=== PATIENT | male | born 1980 | race Caucasian/White ===

== ENCOUNTER → 2017-05-20 12:24 | Outpatient (CLI) | payer OTHER, SELFPAY ==
[2017-05-20 15:48] LABS: Absolute Neutrophil Count 4.5 X10^3/uL (2.0-7.7); Basophil# 0.02 X10^3/uL; Basophil% 0.3 % (0-1); Eosinophils% 1.5 % (0-5); Hematocrit 45.4 % (40-54); Hemoglobin 15.6 g/dl (13.0-16.5); Lymphocyte % 19.9 % (19-41); Mean Corp Hgb Conc 34.4 g/gl (32-36); Mean Corpuscular Hgb 28.2 pg (27.0-32.0); Mean Corpuscular Volume 82.1 fL (80-94); Mean Platelet Vol. 10.8 fl (6.2-12.0); Monocyte# 0.58 X10^3/uL; Monocyte% 8.9 % (0-10); Neutrophil # 4.51 X10^3/uL (2.7-7.7); Neutrophil % 69.2 % (47-70); Platelet Count 217 K/mm3 (150-450); RBC Distribution Width CV 13.2 % (11.6-14.6); RBC Distribution Width SD 39.3 fl (35.1-43.9); Red Blood Count 5.53 M/mm3 (4.6-6.2); White Blood Count 6.5 K/mm3 (4.4-11.0)
[2017-05-20 15:54] LABS: POSITIVE COUNT NO; POSITIVE DIFFERENTIAL NO; POSITIVE MORPHOLOGY NO
[2017-05-20 16:02] LABS: CRP < 2.90 mg/L (0.0-3.0)
== END ==
PROVIDERS: Family Provider Family Medicine; PCP Family Medicine; Visit Provider Family Medicine
DX: R51 Headache (principal); R53.83 Other fatigue; R42 Dizziness and giddiness
CPT/HCPCS: 36415; 85025; 86140

== ENCOUNTER 2018-05-01 03:35 | Emergency (ER) | payer OTHER, SELFPAY ==
[2018-05-01 03:37] VITALS: BP 132/72; PULSE 100; RESP 18; TEMP 36.7; O2SAT 99; BMI 26.4
[2018-05-01] MEDS: 0.9% Normal Saline 1,000 ML 1000 ML IV (03:58)
[2018-05-01] MEDS: Ondansetron 4 MG/2 ML Vial IV (03:58)
[2018-05-01 04:16] LABS: Anion Gap 7 (5-15); BUN 14 mg/dL (7-18); BUN/Creat Ratio 12.2 RATIO (10-20); Calcium,Total 8.9 mg/dL (8.5-10.1); Chloride 107 mmol/L (98-107); Creatinine, Serum 1.15 mg/dL (0.70-1.30); EST Glomerular Filtration Rate 76 mL/min (>60); Est Glom Filt Rate - Afr Amer 92 mL/min (>60); Estimated Creatinine Clearance 100.36 ml/min; Glucose 111 mg/dL (74-106); Potassium 4.1 mmol/L (3.5-5.1); Sodium Level 142 mmol/L (136-145)
[2018-05-01] MEDS: Ketorolac 30 MG/ML Syringe IV (04:25)
--- NOTE | 2018-05-01 05:21 | ED.VISSUMM ---
- ER Visit Summary Date of Service: 05/01/18 Chief Complaint: Nausea, vomiting and diarrhea with abdominal cramping. History of Present Illness: The patient is a 37 M past medical history of reflux. Patient states around 1130 night he started having nausea, vomiting and diarrhea with associated diffuse abdominal cramping. No dysuria. He has had prior GI workups that were negative. He denies any fever. No abdominal trauma. Physical Examination: Well-appearing young male. Vital signs are stable. He is afebrile. He does not look septic or toxic. H EENT exam unremarkable. Neck nontender no lymphadenopathy. Lungs clear to auscultation bilaterally. Heart regular rate and rhythm no murmur. Abdomen soft. Nondistended. Normal bowel sounds no peritoneal signs. He did describes pain but there is no reproducible tenderness. His right upper right lower quadrants are unremarkable. No hernias or masses. Patient moving all 4 extremities. Neurovascular intact. Back nontender. Skin normal. Neurologic exam normal. Test Results: Chemistries normal with a normal BUN, creatinine and gap. Emergency Department Course and Treatment: Repeat exam patient is doing much better after being treated with a liter of normal saline. IV Zofran and Toradol. Repeat exam of his abdomen though 520 his abdomen is benign. He feels much better is comfortable being discharged home. Treatment Plan: Clinically treated as a viral gastroenteritis. Plenty of fluids and rest. Zofran as needed for nausea. Return if feeling worse or follow-up with not improving. Increase diet slowly. Disposition: Discharge Impression: Acute nausea, vomiting and diarrhea secondary to viral gastroenteritis This note was generated with [employer] dictation software. It may contain incorrect words, spelling, and punctuation that were not noted in review of the chart prior to signing ED Disposition - Plan for ED Patient: Referrals: Robb Young DO [Primary Care Provider] -
--- NOTE | 2018-05-01 05:26 | ED.DEP ---
ED Disposition - Plan for ED Patient: Disposition: Home or Assisted Living Instructions: ED Gastroenteritis Viral Referrals: Robb Young DO [Primary Care Provider] - 3-5 Days if not improving Additional Instructions: Plenty of fluids and rest and increase diet as tolerated. Zofran as needed for nausea. Follow-up with your doctor as needed or return if feeling worse.
[2018-05-01] MEDS: Ondansetron ODT 4 MG Tablet PO (05:34)
[2018-05-01 05:36] VITALS: BP 139/85; PULSE 89; RESP 18; O2SAT 100
== END 2018-05-01 05:36 | disposition home or self-care (01) ==
PROVIDERS: Emergency Provider Emergency Medicine; Family Provider Family Medicine; PCP Family Medicine
DX: A08.4 Viral intestinal infection, unspecified (principal); K21.9 Gastro-esophageal reflux disease without esophagitis
CPT/HCPCS: 80048; 96361; 96374; 96375; 99285; J7030; A4216; J2405

== ENCOUNTER → 2019-04-24 12:10 | Outpatient (CLI) | payer OTHER, SELFPAY ==
--- NOTE | 2019-04-24 12:15 | RAD_ITS ---
STUDY: X-RAY - LEFT HUMERUS REASON FOR EXAM: Male, 38 years old. left proximal arm pain, occasionally with tingling of the left arm, etiology unclear TECHNIQUE: 3 view(s) of the humerus. COMPARISON: None. FINDINGS: Normal visualized humerus. There is no demonstrated fracture or osseous destructive process. There is no demonstrated soft tissue abnormality. RAD/Humerus min 2 Views IMPRESSION: Normal x-ray examination of the humerus. Electronically Signed: Kayla Blanc MD at 0:48 EDT , Service support ,
== END ==
PROVIDERS: PCP Family Medicine; Referring Provider Family Medicine; Visit Provider Family Medicine
DX: M79.602 Pain in left arm (principal)
CPT/HCPCS: 73060

== ENCOUNTER → 2019-05-08 12:46 | Outpatient (CLI) | payer OTHER, SELFPAY ==
--- NOTE | 2019-05-08 12:56 | MRI_ITS ---
STUDY: MRI LEFT SHOULDER REASON FOR EXAM: Male, 38 years old. LEFT SHOULDER WEAKNESS, nki TECHNIQUE: Standardized fat and water weighted pulse sequences were obtained in all 3 orthogonal planes. COMPARISON: X-ray of the left humerus dated April 24, 2019 FINDINGS: Normal supraspinatus tendon. Normal infraspinatus tendon. Normal subscapularis tendon. Normal teres minor tendon. Normal supraspinatus muscle. Normal infraspinatus muscle. Normal subscapularis muscle. Normal teres minor muscle. Normal glenohumeral articulation. Normal humeral head and visualized proximal humerus. Normal biceps labral complex. Normal intracapsular long biceps tendon. Normal labrum. No demonstrated labral tear or detachment. No para labral cyst. Normal capsulo- ligamentous complex. Normal rotator interval. No marrow edema is seen. No joint effusion. Normal acromioclavicular articulation. There is a Type II morphology (curved), with a neutral orientation. There is no subacromial-subdeltoid bursal fluid. Normal visualized coracohumeral and coracoacromial ligaments. Normal quadrilateral space. Normal axillary space. Normal deltoid muscle. Normal trapezius muscle. MRI/Upper Ext Joint Only(Routine) IMPRESSION: Negative MRI of the shoulder. Electronically Signed: Alejandro Arvizu MD at 14:50 EDT , Service support ,
== END ==
PROVIDERS: PCP Family Medicine; Referring Provider Family Medicine; Visit Provider Family Medicine
DX: M25.512 Pain in left shoulder (principal); M79.602 Pain in left arm
CPT/HCPCS: 73221

== ENCOUNTER 2019-12-25 11:38 | Emergency (ER) | payer OTHER, SELFPAY ==
[2019-12-25 11:39] VITALS: BP 138/89; PULSE 93; RESP 18; TEMP 36.2; O2SAT 98; BMI 26.4
--- NOTE | 2019-12-25 11:55 | ED.VIS.UPPEX ---
History of Present Illness Chief Complaint: Laceration Informant: Patient Occurred: Today - ISATU Mechanism/Context: Injury - Tree stand broke, as he was falling out he attempted to grab something to break his fall and accidentally grabbed a screw, causing a laceration to his right hand Context: Sudden Onset Timing: Continuous Quality of Pain: - - sore, burning Location: R palm Current Severity: Moderate Maximum Severity: Severe Worsened by: moving, water in wound Relieved by: remaining still Associated Symptoms: Negative for: Parasthesia, Weakness, Loss of Funtion Narrative: [id number]. No other injuries. Tetanus Immunization: >10 years - Past Medical History (1) Hypertension Status: Chronic Past Medical History - Allergies and Home Meds Allergies/Adverse Reactions: Allergies No Known Allergies Allergy (Verified 05/01/18 03:39) Primary Care Physician: Robb Young DO [Primary Care Provider] - 10-14 Days suture removal Smoking Status: Never smoker Review of Systems General: Denies: Chills, Fever, Sweats Musculoskeletal: Reports: Extremity Pain. Denies: Neck pain, Back pain Skin: Reports: Wounds. Denies: Abscess Neurological: Denies: Headache, Weakness, Numbness Physical Exam Vital Signs/Narrative: Vital Signs Temp Pulse Resp BP Pulse Ox 12/25/19 11:39 97.1 F L 93 18 138/89 H 98 General: Well nourished, Well developed, - - No acute distress Head: Normocephalic, Atraumatic Extremeties: Right hand: All extensors and superficial, deep flexors intact. No bony tenderness. Skin: Normal color, No rash, Trauma - 5 cm full-thickness jagged wound to the distal aspect of the right palm, at the base of the fingers 2-4. No obvious contamination. No active bleeding. Superficial abrasion ulnar aspect of hand. Neurological: Alert, Oriented x3, Cranial nerves II-XII grossly intact, Normal Strength, Normal Sensation, Normal Gait Psychological: Normal affect, Normal Mood Diagnostic/Tx/Re-eval - Medical Decision Making Tetanus was updated, laceration was repaired after exploring it thoroughly, no tendons are able to be visualized in the wounds, exploring it in a bloodless field. Given that it is certainly possible with all the subcutaneous fat the patient penetrated that the wound progresses down to the level of the tendon sheaths, I will put him on 5-day course of Duricef to prevent infection. Procedures - Lacerations Right hand Length: 5 cm Depth: Sub Q Shape: Stellate Prep: Sterile Conditions, Chlorhexadine Laceration repair: Irrigated, Lidocaine with epi - 5cc, Local Irrigated (ml): 100 Number of Sutures/Orange: 8 Suture Information: Ethilon, Simple, 4-0 ED Disposition - Plan for ED Patient: Disposition: Home or Assisted Living Diagnosis: Laceration of right hand, Tetanus-diphtheria (Td) vaccination Instructions: ED Laceration Hand Prescriptions: Cefadroxil Hydrate [Duricef] 500 mg PO BID 5 Days #10 cap Prescription Printed Referrals: Robb Young DO [Primary Care Provider] - 10-14 Days suture removal
[2019-12-25] MEDS: Diphth,Pertuss(Acell),Tet Vac 0.5 ML Vial IM (14:51)
--- NOTE | 2019-12-25 15:03 | ED.RN ---
DISCHARGE INSTRUCTIONS GIVEN TO AND REVIEWED WITH PATIENT, PATIENT DENIES QUESTIONS OR CONCERNS AND VOICES UNDERSTANDING OF DISCHARGE INSTRUCTIONS. PT AMBULATES OUT OF ROOM WITHOUT DIFFICULTY.
== END 2019-12-25 15:04 | disposition home or self-care (01) ==
PROVIDERS: Emergency Provider Emergency Medicine; PCP Family Medicine
DX: S61.411A Laceration without foreign body of right hand, initial encounter (principal); Z23 Encounter for immunization; W26.8XXA Contact with other sharp object(s), not elsewhere classified, initial encounter; Y93.9 Activity, unspecified; Y92.9 Unspecified place or not applicable; I10 Essential (primary) hypertension; Z79.899 Other long term (current) drug therapy
CPT/HCPCS: 12002; 90471; 90715; 99284

== ENCOUNTER → 2020-02-20 15:20 | Outpatient (CLI) | payer OTHER, SELFPAY ==
[2020-02-20 17:02] LABS: Absolute Lymphocyte Count 1.16 X10^3/uL (0.83-4.51); Basophil# 0.04 X10^3/uL; Basophil% 0.4 % (0-1); Eosinophil# 0.18 X10^3/uL; Hematocrit 46.7 % (40-54); Hemoglobin 16.1 g/dL (13.0-16.5); Lymphocyte # 1.16 X10^3/ul (4.0); Lymphocyte % 12.6 % (19-41); Mean Corp Hgb Conc 34.5 g/dL (32-36); Mean Corpuscular Hgb 28.5 pg (27.0-32.0); Mean Corpuscular Volume 82.7 fL (80-94); Monocyte# 0.72 X10^3/uL; Monocyte% 7.9 % (0-10); NRBC Flagged by Analyzer 0 % (0-5); Neutrophil # 7.03 X10^3/uL (2.7-7.7); Neutrophil % 76.7 % (47-70); Platelet Count 275 K/mm3 (150-450); RBC Distribution Width CV 12.6 % (11.6-14.6); RBC Distribution Width SD 37.6 fl (35.1-43.9); Red Blood Count 5.65 M/mm3 (4.6-6.2); White Blood Count 9.2 K/mm3 (4.4-11.0)
[2020-02-20 17:07] LABS: Erythrocyte Sedimentation Rate 2 mm/hr (0-20)
[2020-02-20 17:17] LABS: Vitamin D,25 Hydroxy 24.3 ng/mL
[2020-02-20 17:21] LABS: ALB/GLOB Ratio 1.3 RATIO (0.9-2.4); AST(SGOT) 18 U/L (15-37); Alanine Aminotransfer ALT/SGPT 43 U/L (16-61); Albumin, Serum 4.2 g/dL (3.2-5.0); Alkaline Phosphatase 103 U/L (45-117); Anion Gap 6 (5-15); BUN 12 mg/dL (7-18); BUN/Creat Ratio 12.6 RATIO (10-20); Calcium,Total 8.8 mg/dL (8.5-10.1); Chloride 102 mmol/L (98-107); Creatinine, Serum 0.95 mg/dL (0.70-1.30); EST Glomerular Filtration Rate 94 mL/min (>60); Est Glom Filt Rate - Afr Amer 114 mL/min (>60); Globulin 3.2 g/dL (2.2-4.2); Glucose 89 mg/dL (74-106); Protein, Total 7.4 g/dL (6.4-8.2); Sodium Level 135 mmol/L (136-145); Thyroid Stim Hormone (TSH) 0.48 uIU/mL (0.358-3.74)
[2020-02-22 16:10] LABS: Endomysial Antibody IgA Negative (Negative)
[2020-02-22 20:40] LABS: Immunoglobulin A 248 mg/dL (90-386); t-Transglutaminase IgA <2 U/mL (0-3)
== END ==
PROVIDERS: PCP Family Medicine; Visit Provider Family Medicine
DX: K92.1 Melena (principal); R53.83 Other fatigue
CPT/HCPCS: 36415; 80053; 82306; 82784; 83516; 84443; 85025; 85652; 86140; 86255

== ENCOUNTER 2020-03-06 08:11 | Day surgery (SDC) | payer OTHER, SELFPAY ==
[2020-02-27 08:34] VITALS: BMI 27.3
[2020-03-06] VITALS (8 sets, daily range): BP systolic 98–126; BP diastolic 59–82; PULSE 58–65; RESP 16–18; TEMP 35.8–36.3; O2SAT 97–98; BMI 26.6
--- NOTE | 2020-03-06 05:12 | HP_ITS ---
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 Is patient in pain?: No Allergies No Known Allergies Allergy (Verified 02/27/20 08:35) Medications Lisinopril [Prinivil] 10 mg PO DAILY 12/25/19 [History Confirmed 02/27/20] diltiazem HCl 1 ea .ROUTE BID #1 ea 02/27/20 [Rx Confirmed 02/27/20] fexofenadine 180 mg tablet 180 mg PO DAILY 02/27/20 [History Confirmed 02/27/20] PFSH Medical History Back pain (Acute) HTN (hypertension) (Chronic) Surgical History History of esophagogastroduodenoscopy (EGD) (Acute) History of vasectomy (Acute) History of wisdom tooth extraction (Acute) Family History Mother Hypertension Brother Hypertension Grandmother Cancer Social History (Updated 02/27/20 @ 09:[address] Julio Mckee MD) Smoking Status: Never smoker HPI HPI Surgical H&P: Yes HPI: ANA GRIGSBY, is a 39 M who presents to the office today for Painful rectal bleeding for months. Patient states that it feels like he has razor blades in his anal area with each bowel movements. About a month ago he had an episode with he had significant rectal bleeding has since stopped but he still having difficulty with painful bowel movements. He has not been on any meds he has been doing any soaking he has not tried any suppositories or creams. ROS General General: Yes fatigue; no weight change, appetite, colon cancer, breast cancer or weakness HEENT HEENT: No difficulty swallowing, eye injury, eye surgery, swollen glands or hoarseness Endo Endocrine: No thyroid disease, diabetes mellitus, thyroid cancer, Hair loss, heat intolerance or cold intolerance Musc Musculoskeletal: Yes back problems; no arthritis, rheumatoid arthritis, gout or joint pain Cardio Cardiovascular: Yes high blood pressure; no murmur, pacemaker, heart disease, atrial fibrillation, heart attack, heart stent, palpitations, shortness of breat with exertion or chest pain Psych Psychiatric: No depression, anxiety or hearing voices Resp Respiratory: No shortness of breath, No sleep apnea, No cough, No COPD, No asthma, No emphysema, No wheezing Gastro Gastrointestinal: No abdominal pain, No nausea or vomiting, No diarrhea, No constipation, Yes blood in stool, No acid reflux, No hemorrhoids, No ulcers, No gallbladder problem, No black,tarry stools Carter Hematologic: No blood thinners, No blood disorders, No bleeding, No anemia, No blood clots Neuro Neurologic: No weakness Exam Const General: no acute distress, well developed, well hydrated Orientation: oriented to person, oriented to place, oriented to time [facility] Head: normocephalic, atraumatic Ears: external ears normal Mouth: moist mucous membranes Eyes Sclera: sclerae normal Pupils: normal by confrontation Neck Neck: no lymphadenopathy noted Neck mass: No Thyroid: thyroid normal, symmetrical Chest Chest palpation & inspection: normal inspection of the chest Resp Effort & Inspection: normal respiratory effort Auscultation: clear to auscultation bilaterally Percussion: percussion normal Cardio Rate: regular rate Rhythm: regular rhythm Heart Sounds: no murmurs GI Palpation: soft, no hepatosplenomegaly, no masses, nontender Rectal Exam: other Other: Rectal exam deferred. Extrem General: normal to inspection, no clubbing, cyanosis or edema Assessment & Plan Problems 1. Rectal hemorrhage K62.5 2. Anal fissure K60.2 Plan I have discussed the above with the patient. I have offered the patient colonoscopy for evaluation. I have explained the risks/benefits of the procedure and described the procedure. I have discussed the risks with the patient, including but not limited to: infection, bleeding, perforation of the GI tract requiring emergency surgery, inability to complete the procedure, injury to any internal organs, complications of anesthesia, etc. - the patient understands and agrees to proceed. I have answered all the patient's questions to the patient's satisfaction and the patient has no further questions. The patient has been given instructions for the colon cleansing preparation. I have also instructed him to start to do warm soaks and Epson salts. We will also be giving him diltiazem cream to start. Medications New: diltiazem HCl apply to rectum twice daily, 60g container given 1 ea 1RF Coding Level of Care Code Off vis,new,level 3 Diagnoses Rectal hemorrhage K62.5 Anal fissure K60.2 I have re-examined the patient. There are no clinical changes since date of exam.
[2020-03-06] MEDS: Lactated Ringers 1,000 ML 100 ML IV (08:49)
--- NOTE | 2020-03-06 13:47 | OP.CCLET_ITS ---
03/06/2020 Robb Young [address] [place] [address] Re : Colonoscopy procedure for Garrison Federico Dear Dr. Young This procedure was performed on Friday, March 06, 2020. My impressions and recommendations are as follows: Impressions : - Non-bleeding internal hemorrhoids. - Anal fissure. - The examination was otherwise normal. Recommendations : - Discharge patient to home. - Resume previous diet. - Continue present medications. - Repeat colonoscopy at appointment to be scheduled for screening purposes. - Return to my office in 1 month. My findings are described in the full procedure note, which is enclosed. If I can be of further assistance, please feel free to contact me at Doctor phone number(s): , Fax: [phone], Work: . Sincerely, MD Julio Miller MD 03/06/2020 9:11:37 AM This report has been signed electronically.
--- NOTE | 2020-03-06 13:47 | OP.COLON_ITS ---
Patient Name: Jhony Caballero Procedure Date: 03/06/2020 8:41 AM Date of : 1980 Age: 39 Procedure: Colonoscopy Indications: Rectal bleeding Providers: Julio Mckee MD Referring MD: Robb Young Medicines: See the Anesthesia note for documentation of the administered medications Patient Profile: This is a 39 year old male. Refer to note in patient chart for documentation of history and physical. Last Colonoscopy: none. The patient's first colonoscopy is today. Complications: No immediate complications. Procedure: Pre-Anesthesia Assessment: - Prior to the procedure, a History and Physical was performed, and patient medications and allergies were reviewed. The patient's tolerance of previous anesthesia was also reviewed. The risks and benefits of the procedure and the sedation options and risks were discussed with the patient. All questions were answered, and informed consent was obtained. Prior Anticoagulants: The patient has taken no previous anticoagulant or antiplatelet agents. ASA Grade Assessment: II - A patient with mild systemic disease. After reviewing the risks and benefits, the patient was deemed in satisfactory condition to undergo the procedure. After I obtained informed consent, the scope was passed under direct vision. Throughout the procedure, the patient's blood pressure, pulse, and oxygen saturations were monitored continuously. The colonoscope was introduced through the anus and advanced to the cecum, identified by appendiceal orifice and ileocecal valve. The colonoscopy was performed without difficulty. The patient tolerated the procedure well. The quality of the bowel preparation was good. Scope In: 8:55:23 AM Scope Withdrawal Time 0 hours 6 minutes 4 seconds Scope Out: 9:04:01 AM Total Procedure Duration Time 0 hours 8 minutes 38 seconds Findings: Non-bleeding internal hemorrhoids were found during retroflexion. The hemorrhoids were mild and small. A diminutive anal fissure was found in the anal canal. No biopsies or other specimens were collected for this exam. The exam was otherwise without abnormality. Impression: - Non-bleeding internal hemorrhoids. - Anal fissure. - The examination was otherwise normal. Recommendation: - Discharge patient to home. - Resume previous diet. - Continue present medications. - Repeat colonoscopy at appointment to be scheduled for screening purposes. - Return to my office in 1 month. Procedure Code(s): --- Professional --- 82295, Colonoscopy, flexible; diagnostic, including collection of specimen(s) by brushing or washing, when performed (separate procedure) Diagnosis Code(s): --- Professional --- K64.8, Other hemorrhoids K60.2, Anal fissure, unspecified K62.5, Hemorrhage of anus and rectum CPT copyright 2017 [employer]. All rights reserved. The codes documented in this report are preliminary and upon hydrologic modeler review may be revised to meet current compliance requirements. MD Julio Miller MD 03/06/2020 9:11:37 AM This report has been signed electronically. Number of Addenda: 0 Note Initiated On: 03/06/2020 8:41 AM
== END 2020-03-06 10:06 | disposition home or self-care (01) ==
LOC: EN 08:19
PROVIDERS: PCP Family Medicine; Referring Provider Family Medicine; Visit Provider Surgery
PROC: 0DJD8ZZ Inspection of Lower Intestinal Tract, Via Natural or Artificial Opening Endoscopic (ICD-10-PCS; CPT 45378; principal; 2020-03-06 09:10)
DX: K60.2 Anal fissure, unspecified (principal); K64.8 Other hemorrhoids; I10 Essential (primary) hypertension; Z79.899 Other long term (current) drug therapy
CPT/HCPCS: 45378; 87426; C9803; J7120; J2405

== ENCOUNTER 2023-07-03 23:57 | Emergency (ER) | payer OTHER, SELFPAY ==
[2023-07-03 23:58] VITALS: BP 186/86; PULSE 89; RESP 18; TEMP 37; O2SAT 98; BMI 25.9
[2023-07-04] MEDS: Diphth,Pertuss(Acell),Tet Vac 0.5 ML Vial IM (00:34)
[2023-07-04] MEDS: Lidocaine 2% (20 ml mdv) 20 ML Vial INFILT (00:34)
[2023-07-04] MEDS: Amox/Clavulanate 875 MG Tablet PO (00:34)
--- NOTE | 2023-07-04 00:50 | RAD_ITS ---
INDICATION: injury EXAMINATION/TECHNIQUE: X-RAY - LEFT XR Hand Min 3 Views COMPARISON: None. FINDINGS: 3 views of the left hand. Comminuted displaced index finger distal phalanx tuft fracture. Associated overlying soft tissue ulceration. No other definite acute osseous abnormality. RAD/Hand Min 3 Views IMPRESSION: Left index finger fracture. Electronically Signed: Keith Morse MD at 1:32 EDT ,
[2023-07-04] MEDS: Bupivacaine Mpf 0.5% 30 ML VIAL INFILT (00:52)
[2023-07-04 03:58] VITALS: PULSE 69; RESP 20; O2SAT 98
--- NOTE | 2023-07-04 05:22 | EDS_ITS ---
HPI History of Present Illness Chief Complaint: Laceration Informant: patient Narrative Narrative: Patient is a 42-year-old male with past medical history of hypertension. 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 He states he is right-hand dominant. He is unsure of his tetanus status. He denies any other injuries [facility] Medical History (Updated 07/05/23 @ 02:[address] Nader Bautista DO) HTN (hypertension) Back pain Home Medications ?Medication ?Instructions ?Recorded ?Last Taken ?Type losartan 50 mg tablet 50 mg PO DAILY 07/03/23 Unknown History amoxicillin 875 mg-potassium 1 tab PO BID 10 days #20 tabs 07/04/23 Unknown Rx clavulanate 125 mg tablet oxycodone-acetaminophen 5 mg-325 1 tab PO Q6H PRN pain 5 days #20 07/04/23 Unknown Rx mg tablet (Percocet) tabs Allergy/AdvReac Type Severity Reaction Status Date / Time No Known Allergies Allergy Verified 07/03/23 23:58 Family History Mother Hypertension Brother Hypertension Grandmother Cancer Surgical History History of esophagogastroduodenoscopy (EGD) History of wisdom tooth extraction History of vasectomy Social History (Updated 02/27/20 @ 09:[address] Julio Mckee MD) Smoking Status: Never smoker [facility] ED Constitutional Constitutional ED: Denies chills or fever(s) ENT ENT ED: Denies sore throat Cardiovascular Cardiovascular: Denies chest pain Respiratory/Chest Respiratory/Chest: Denies cough or dyspnea Gastrointestinal Gastrointestinal: Denies abdominal pain, diarrhea, nausea or vomiting Genitourinary Genitourinary ED: Denies dysuria Musculoskeletal Musculoskeletal: Reports other Details: Positive left hand/finger pain Integumentary Reports other Details: Positive left index finger laceration Neurologic Neurologic: Reports paresthesias; Denies headache(s) or weakness Hematologic/Lymphatic Hematologic/Lymphatic: Denies easy bleeding or easy bruising EXAM Physical Exam Const Vital Signs: 07/04/23 03:58 07/04/23 05:47 Temperature 96.8 F L Pulse Rate 69 82 Respiratory Rate 20 H 16 Blood Pressure 154/107 H Blood Pressure Mean 122 Pulse Ox 98 96 Oxygen Delivery Method Room Air Positive well nourished and well developed General Appearance ED: well developed HEENT HEENT Narrative: Normocephalic atraumatic Eyes PERRL and EOMs intact bilaterally Neck supple Resp normal respiratory effort and clear to auscultation bilaterally Cardio regular rate and regular rhythm Extremity Extremity Narrative: Left upper extremity has a strong radial pulse at plus 2 out of 4. Capillary refills less than 3 seconds. To the left index finger patient has a 1.5 cm vertical subcutaneous layer deep laceration to the radial aspect of the second distal phalanx. There is a small pulsatile bleed associate with the superficial artery. Patient also endorses numbness at the site concerning for injury to the neurovascular bundle. Patient has another laceration through the nailbed that appears full-thickness in depth with persistent ooze of blood that is also roughly 1.5 cm in size. Then there is a horizontal laceration across the finger pad also roughly 1.5 cm in size that is muscle depth with persistent use of blood. Lastly there is a skin avulsion along the ulnar aspect of the distal phalanx of the index finger. Otherwise extremity exam is normal without findings suggestive of damage to the ligaments or extensor or flexor tendon. Neuro oriented x3 and CN's II-XII intact bilaterally Sensorium / Orientation: alert Motor Exam: strength 5/5 throughout Psych mental status grossly normal Skin Skin Narrative: Laceration to left index finger as documented above that involves the nailbed however there are no obvious signs of infection MDM MDM MDM Narrative Medical decision making narrative: Patient arrived to the ER hypertensive otherwise with stable vitals. 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 He is unsure of his tetanus status. He reports he is right-hand dominant. Physical exam shows multiple lacerations and there is concern for open fracture based on the laceration through the nailbed. Physical exam does not show changes concerning for ligamentous or flexor tendon injury. As patient endorses numbness along the lateral aspect of the finger he most likely has damage to the neurovascular bundle. Patient's x-ray confirmed fracture. However he does not show signs of systemic infection he does not have flexor tendon injuries and therefore there is no need for emergent orthopedic consultation. The patient has tetanus status updated. The wounds were cleaned and closed as documented below. Following this we placed on Augmentin to prevent infection from the open fracture and will follow-up with orthopedics to ensure there is no need for further intervention. Patient was given a digital block to the left index finger using 6 mL of 2% lidocaine without epinephrine and 2 mL of 0.5% Marcaine. Prior to the injection the finger was cleaned with chlorhexidine. After achieving anesthesia the patient had the finger copiously irrigated with normal saline. The patient then had eight 4-0 Ethilon sutures placed to the laceration along the radial aspect of the left distal phalanx of the index finger. Patient had six 5-0 Vicryl sutures placed along the laceration of the nailbed and then he had another eight 4-0 Ethilon sutures were placed along the laceration encompassing the finger pad. All the lacerations were closed using simple interrupted technique. Patient tolerated the procedure well without complication. History & Record Review Discussion w/independent historian: Patient Radiography Diagnostic Testing: Clinical Impression(s) from Imaging Studies Hand X-Ray 07/04/23 00:50 IMPRESSION: Left index finger fracture. Electronically Signed: Keith Morse MD at 1:32 EDT , X-ray of the left hand as interpreted by the emergency medicine physician reveals a fracture to the distal phalanx of the left index finger Discharge Plan Triage Chief Complaint: Laceration ED Provider: Ndaer Bautista Dx/Rx/DC Orders Clinical Impression: Open fracture of distal phalanx of left index finger, Nailbed laceration, finger, Hypertension Instructions: ED Fracture, Finger, Open, ED Laceration, Hand: All Closures Prescriptions: New amoxicillin-pot clavulanate 875-125 mg tablet 1 tab PO BID 10 Days Qty: 20 0RF oxycodone-acetaminophen [Percocet] 5-325 mg tablet 1 tab PO Q6H PRN (Reason: pain) 5 Days Qty: 20 0RF No Action losartan 50 mg tablet 50 mg PO DAILY Primary Care Provider: Robb Young Referrals: Robb Young DO [Primary Care Provider] - Conrado Parra DO [Med Staff - Active Staff] - Activity Restrictions/Additional Instructions: Please follow-up with orthopedics as directed secondary to your open fracture and nailbed laceration. Take the antibiotic as directed to prevent infection. Return to the ER or see your doctor in 7 to 10 days for suture removal. Print Language: Romanian Disposition Disposition: Home, Self Care Discharge Date/Time: 07/04/23 05:49
[2023-07-04 05:47] VITALS: BP 154/107; PULSE 82; RESP 16; TEMP 36; O2SAT 96
== END 2023-07-04 05:49 | disposition home or self-care (01) ==
PROVIDERS: Emergency Provider Emergency Medicine; PCP Family Medicine; Visit Provider Emergency Medicine
DX: S62.631A Displaced fracture of distal phalanx of left index finger, initial encounter for closed fracture (principal); I10 Essential (primary) hypertension; W26.8XXA Contact with other sharp object(s), not elsewhere classified, initial encounter; Z98.52 Vasectomy status; Z23 Encounter for immunization
CPT/HCPCS: 12002; 73130; 90715; 99283

== ENCOUNTER → 2023-07-20 | Outpatient (CLI) | payer OTHER, SELFPAY ==
--- NOTE | 2023-07-20 15:22 | VDUE_ITS ---
Reason For Study: confirm R jugular vein aneurysm Right Proximal Right jugular vein is spontaneous, widely patent, phasic, with no intraluminal echogenicity noted. Right subclavian vein is spontaneous, widely patent, phasic, with no intraluminal echogenicity noted. Right Lower Arm Right radial vein is compressible. Right ulnar vein is compressible. Right Arm Right axillary vein is spontaneous, patent, phasic, competent, compressible and demonstrates augmentation. Right brachial vein is compressible. Right cephalic vein is compressible. Right basilic vein is compressible. Prelim to Virginie Nam's office. VL/Venous Duplex US, Unilateral Interpretation Summary Deep veins of the right upper extremity are patent and compressible segmentally . There is no evidence of deep vein thrombosis. Superficial veins of the right upper extremity are patent and compressible segm entally. There is no evidence of superficial vein thrombosis. Right internal jugular vein 1.45 cm Ordering Physician: Virginie Nam Referring Physician: Virginie Nam Performed By: Otf Lewis RVT ???
== END | disposition home or self-care (01) ==
PROVIDERS: PCP Family Medicine; Referring Provider Nurse Practitioner Family; Visit Provider Nurse Practitioner Family
DX: I86.8 Varicose veins of other specified sites (principal)
CPT/HCPCS: 93971